=== PATIENT | female | born 1965 | race Caucasian/White ===

== ENCOUNTER → 2023-08-21 11:30 | Outpatient (REF) | payer BC, SELFPAY ==
[2023-08-21 09:31] LABS: % Basophils 1.3 % (0-2); % Immature Granulocytes 0.3 % (0-0.5); % Lymphocytes 18.9 % (20.5-51.1); % Monocytes 15.1 % (1.7-9.3); % Neutrophils 61.4 % (42.2-75.2); Absolute Basophils 0.1 10^3/uL (0-0.2); Absolute Eosinophils 0.1 10^3/uL (0-0.7); Absolute Lymphocytes 0.8 10^3/uL (1.2-3.4); Absolute Monocytes 0.6 10^3/uL (0.1-0.6); Absolute Neutrophils 2.4 10^3/uL (1.4-6.5); Hemoglobin 12.9 g/dL (12.0-16.0); Mean Corp Hgb Conc. 34.9 g/dL (33.0-37.0); Mean Corpuscular Hgb 30.3 pg (27.0-31.0); Mean Corpuscular Volume 86.9 fL (81.0-99.0); Mean Platelet Volume 8.4 fL (7.4-10.4); Nucleated Red Blood Cells % 0 %; Platelet Count 247 10^3/uL (130-400); Red Blood Cell Count 4.26 10^6/uL (4.20-5.40); Red Cell Dist. Width 12.8 % (11.5-14.5)
[2023-08-21 09:47] LABS: ALT (SGPT) 32 U/L (0-35); AST (SGOT) 33 U/L (14-36); Albumin 4.1 g/dl (3.5-5.0); Alkaline Phosphatase 88 U/L (38-126); Blood Urea Nitrogen 23 mg/dl (7-17); Carbon Dioxide 26 mmol/L (22-30); Chloride 96 mmol/L (98-107); Glucose 88 mg/dl (70-99); Potassium 4.4 mmol/L (3.5-5.1); Sodium 134 mmol/L (135-145); Total Bilirubin 0.9 mg/dl (0.2-1.3); Total Protein 6.1 g/dl (6.3-8.2); eGFR 57.52
== END ==
LOC: OIDL 11:30
PROVIDERS: ATTENDING PHYSICIAN Internal Medicine Hematology & Oncology
DX: C83.39 Diffuse large B-cell lymphoma, extranodal and solid organ sites (principal)
CPT/HCPCS: 80053; 85025

== ENCOUNTER → 2023-10-23 11:35 | Outpatient (REF) | payer BC, SELFPAY ==
[2023-10-23 10:59] LABS: ALT (SGPT) 27 U/L (0-35); AST (SGOT) 27 U/L (14-36); Albumin 4.2 g/dl (3.5-5.0); Alkaline Phosphatase 109 U/L (38-126); Blood Urea Nitrogen 17 mg/dl (7-17); Calcium 9.6 mg/dl (8.4-10.2); Carbon Dioxide 25 mmol/L (22-30); Chloride 104 mmol/L (98-107); Glucose 98 mg/dl (70-99); Potassium 4.2 mmol/L (3.5-5.1); Sodium 135 mmol/L (135-145); Total Bilirubin 0.5 mg/dl (0.2-1.3); Total Protein 6.1 g/dl (6.3-8.2); eGFR > 60.00
[2023-10-23 14:04] LABS: % Basophils 1.1 % (0-2); % Eosinophils 2.9 % (0-6); % Immature Granulocytes 0.5 % (0-0.5); % Lymphocytes 16.6 % (20.5-51.1); % Monocytes 14.1 % (1.7-9.3); % Neutrophils 64.8 % (42.2-75.2); Absolute Basophils 0.1 10^3/uL (0-0.2); Absolute Eosinophils 0.1 10^3/uL (0-0.7); Absolute Lymphocytes 0.7 10^3/uL (1.2-3.4); Absolute Monocytes 0.6 10^3/uL (0.1-0.6); Absolute Neutrophils 2.9 10^3/uL (1.4-6.5); Hematocrit 37.4 % (37.0-47.0); Hemoglobin 12.6 g/dL (12.0-16.0); Mean Corp Hgb Conc. 33.7 g/dL (33.0-37.0); Mean Corpuscular Hgb 31.1 pg (27.0-31.0); Mean Corpuscular Volume 92.3 fL (81.0-99.0); Mean Platelet Volume 9.1 fL (7.4-10.4); Nucleated Red Blood Cells % 0 %; Platelet Count 256 10^3/uL (130-400); Red Blood Cell Count 4.05 10^6/uL (4.20-5.40); White Blood Cell Count 4.4 10^3/uL (4.8-10.8)
== END ==
LOC: OIDL 11:35
PROVIDERS: ATTENDING PHYSICIAN Internal Medicine Hematology & Oncology
DX: C83.39 Diffuse large B-cell lymphoma, extranodal and solid organ sites (principal)
CPT/HCPCS: 80053; 85025

== ENCOUNTER → 2023-10-28 06:33 | Day surgery (SDC) | payer BC, SELFPAY | LOC: GI 06:33 | PROVIDERS: ATTENDING PHYSICIAN Internal Medicine Gastroenterology; FAMILY PHYSICIAN Physician Assistant Medical | DX: Z12.11 Encounter for screening for malignant neoplasm of colon (principal); K64.8 Other hemorrhoids; K44.9 Diaphragmatic hernia without obstruction or gangrene; K31.89 Other diseases of stomach and duodenum; R93.3 Abnormal findings on diagnostic imaging of other parts of digestive tract; R12 Heartburn; Z83.719 Family history of colon polyps, unspecified | CPT/HCPCS: 43239; G0105; 88305; 88342 ==

== ENCOUNTER → 2023-10-30 12:17 | Outpatient (REF) | payer BC, SELFPAY ==
[2023-10-30 12:35] VITALS: BP 153/74; BP_SYST 66
[2023-10-30 13:25] VITALS: BP 150/80; BP_SYST 56
[2023-10-30 13:33] VITALS: BP 150/80; BP_SYST 56
[2023-10-30 13:34] VITALS: BP 150/80
== END ==
LOC: RADI 12:17
PROVIDERS: ATTENDING PHYSICIAN Internal Medicine Hematology & Oncology; FAMILY PHYSICIAN Physician Assistant Medical
DX: Z45.2 Encounter for adjustment and management of vascular access device (principal); C83.39 Diffuse large B-cell lymphoma, extranodal and solid organ sites; Z92.21 Personal history of antineoplastic chemotherapy
CPT/HCPCS: 36590; 77001

== ENCOUNTER → 2023-12-28 08:26 | Outpatient (REF) | payer BC, SELFPAY | LOC: RAD 08:26 | PROVIDERS: ATTENDING PHYSICIAN Nurse Practitioner Adult Health; FAMILY PHYSICIAN Physician Assistant Medical | DX: Z78.0 Asymptomatic menopausal state (principal) | CPT/HCPCS: 77080 ==

== ENCOUNTER → 2024-03-09 12:37 | Outpatient (REF) | payer BC, SELFPAY | LOC: RAD 12:37 | PROVIDERS: ATTENDING PHYSICIAN Internal Medicine Hematology & Oncology; FAMILY PHYSICIAN Physician Assistant Medical | DX: C83.39 Diffuse large B-cell lymphoma, extranodal and solid organ sites (principal); L03.90 Cellulitis, unspecified | CPT/HCPCS: 71260; 74177; Q9967 ==

== ENCOUNTER 2024-03-29 21:27 | Inpatient (IN) | payer BC, SELFPAY ==
[2024-03-29 17:44] VITALS: BP 158/93
--- NOTE | 2024-03-29 19:34 | ED.GENMED ---
History of Present Illness
General
Chief Complaint: Skin Problem
Source: patient
Exam Limitations: none
Time Seen by Provider: 03/29/24 19:18
History of Present Illness
History of Present Illness:
This is a 58 year old female that comes in with c/o right arm pain and swelling. States that 2 weeks ago she started to feel that her elbow was sore. State that 2 days ago it was swollen and painful. Patient went to the PCP yesterday and she was
started on Keflex 500mg BID. States that she has taken 4 doses and today the arm is worse. States that it is red, painful and more swollen. State that she has a headache and diarrhea. State that she has to get better as her daughters wedding in this
weekend. Denies any fever, chills, chest pain, SOB, abd pain, nausea, vomiting, dizziness, urinary burning.
Past History
Past History
ED Past Medical History: Cancer (Lymphoma, ), HTN, Hypercholesterolemia, Seizures and Other (Sjogren syndrome, Ulcers, Lupus,)
ED Past Surgical History: Orthopedic (Bunionectomy), Tonsilectomy (and adenoids) and Other (Parathyroidectomy, )
Social History
Tobacco: Non-smoker
Alcohol: None
Personal:
Living: with family
Review of Systems
Review of Systems
All Other Systems: ROS reviewed and negative except as documented in HPI and ROS
Constitutional: Reports no symptoms; Denies fever or chills
EENT: Reports no symptoms
Respiratory: Reports no symptoms; Denies cough or trouble breathing
Cardiac: Reports no symptoms; Denies chest pain
ABD/GI: Reports diarrhea; Denies abdominal pain, nausea or vomiting
: Reports no symptoms; Denies dysuria, frequency or urgency
Musculoskeletal: Reports joint pain (Right elbow pain and swelling)
Skin: Reports no symptoms
Neurological: Reports headache; Denies dizzy
Psychiatric: Reports no symptoms
Phy Exam
General Physical Exam
General Presentation: no apparent distress
General age: appears stated age
General Skin: warm and dry
General Habitus: normal
General Mental: alert
General Hydration: appears well hydrated
ENT Exam
ENT Exam: TM's normal, pharynx normal and neck supple
Eye Exam
Eye Exam: EOMI
Cardiovascular Exam
Cardiovascular Exam: regular rate/rhythm, no edema, no murmur and normal peripheral pulses
Pulmonary Exam
Pulmonary Exam: lungs clear, no respiratory distress, no rales, chest non tender, no crackles, no rhonchi, no wheezing and no cough
Gastrointestinal Exam
Gastrointestinal Exam: normal bowel sounds, non tender, soft, no organomegaly, no pulsatile mass and non distended
Musculoskeletal Exam
Musculoskeletal Exam: full ROM and joint swelling (right elbow, Painful to touch)
Skin Exam
Skin Exam: normal color, warm/dry, no petechia, redness (Of the right elbow with slight redness down into the forearm and upper arm. ) and other (Small white area noted on the center of the elbow with the redness around)
Psychiatric Exam
Psychiatric Exam: normal mood/affect
Course
Orders/Labs/Results
Orders:
Orders
03/29/24 19:27
Elbow, Right 3 View [CR Elbow - Right Min 3 Views] Urgent
Comment:
Reason For Exam: Swellig pain
03/29/24 20:23
Complete Blood Count/With Diff Urgent
Comprehensive Metabolic Panel Urgent
Lactic Acid Urgent
03/29/24 20:36
Vancomycin 1 Gram/200 ml [Vancocin] 1 gram in 200 ml IV NOW
03/29/24 21:13
Admit/Transfer Patient As Directed
Co-Sign Provider:
Level of Care: Inpatient admission
Assign to:: Medical/Surgical
Physician / Group: jacobo ferraro
Diagnosis: right elbow olcreanon bursitis immunocompromised pt
Reason for Hospitalization: right elbow olcreanon bursitis immunocompromised pt
Expected length of stay greater than two midnights?: Yes
ELOS- Estimated Length of Stay in days: 3
I certify the patient meets the requirements for IP care: Yes
Code Status As Directed
Resuscitation Status: Full Code
03/29/24 21:14
PRN Pain Medication Management As Directed
May give lesser potent ordered pain med per pt: Yes
preference::
Protocol:: Medication orders for pain may be administered in a
manner that supports deferring to patient preference
when the pt is:
- Requesting an ordered lesser potent pain medication.
Least to most potent pain medications are defined
as: acetaminophen < NSAID < tramadol < opioids
(morphine, oxycodone, hydromorphone).
- Requesting a lesser dose of the same medication IF
ORDERED.
- Requesting a less intrusive route of administration
if both routes are prescribed by the provider (PO <
IV).
Abnormal Lab Results
03/29/24
20:23
Absolute Lymphs (auto) 1.0 L 10^3/uL
(1.2-3.4)
Absolute Monos (auto) 0.8 H 10^3/uL
(0.1-0.6)
Lymphocytes % 13.7 L %
(20.5-51.1)
Monocytes % 11.5 H %
(1.7-9.3)
Chloride 97 L mmol/L
(98-107)
BUN 22 H mg/dl
(7-17)
Calcium 10.3 H mg/dl
(8.4-10.2)
ALT 36 H U/L
(0-35)
Alkaline Phosphatase 139 H U/L
(38-126)
03/29/24 20:23
03/29/24 20:23
Chloride slightly low. Dehydration. alk phos slightly elevated.
Vital Signs
Initial and Last Documented VS:
Initial Vital Signs
Temp Pulse Resp BP Pulse Ox
98.4 F 72 18 158/93 96
03/29/24 17:44 03/29/24 17:44 03/29/24 17:44 03/29/24 17:44 03/29/24 17:44
Last Documented Vital Signs
Temp Pulse Resp BP Pulse Ox
98.2 F 83 18 157/86 97
03/29/24 21:13 03/29/24 21:13 03/29/24 21:13 03/29/24 21:13 03/29/24 21:13
MDM/Problems Addressed
Differential Diagnosis Includes:
Cellulitis, Vs bursitis
MDM/Problems Addressed:
This is a 58 year old female that comes in with c/o right elbow swelling and redness. states that this started 2 weeks ago but in the pst 2 days it got worse. Patient was seen by the PCP yesterday and she has taken Keflex 500mg 4 doses. States that
the arm has gotten worse and that she has had daughters wedding this weekend and she is Immunocompromised.
will get labs, X-ray and explained to patient that she will most likely be admitted for IV antibiotics.
Chronic conditions affecting care:
Immunocompromised
Acute Exacerbation and/or Progression of Chronic Illness:
NA
*Radiology
Radiology exam reviewed: radiology read reviewed (elbow. No acute fracture or dislocation. Severe posterior elbow soft tissue swelling may reflect olecranon bursitis. joint spaces are maintained. No radiographic evidence for osteomyelitis.
questionable joint effusion. Scattered soft tissue phleboliths. )
*Pulse Oximetry
Patient hypoxic: no
*EKG
Interpreted by ED Provider?: NA
Rate: EKG- N/A
*Standard Machine Stitcher Interpretation
Rate: Standard Machine Stitcher- N/A
*Critical Care Note
Total Time (30-74mins, 75-104mins- exclusive of procedures): Not Applicable
ED Attending Note
-
Portions of this chart may have been created with voice recognition software.� Occasional wrong word or��sound alike� substitutions may have occurred due to the inherent limitations of voice recognition software.
Discharge Plan
Departure
Patient Disposition: Admit
Date of Disposition: 03/29/24
Time of Disposition: 20:39
Admit to: Med/Surg
Presentation/result/management discussed w/ accepting MD/DO: Hospitalist
Patient with high blood pressure during this ER visit?: Yes
Condition: Good
Covid-19: Not Applicable
Discharge Problem:
Elbow pain, right, bursitis vs Cellulitis
Interventions
Interventions:
*Risk Screen - Suicide Last Done: 03/29/24 21:17
*General Assessment Last Done: 03/29/24 21:17
*Neglect/Abuse Screening Last Done: 03/29/24 21:17
ED- Fall Risk Assessment Last Done: 03/29/24 20:49
ED-Skin Assessment Last Done: 03/29/24 20:49
[2024-03-29 20:29] LABS: % Basophils 0.8 % (0-2); % Eosinophils 1.4 % (0-6); % Immature Granulocytes 0.3 % (0-0.5); % Lymphocytes 13.7 % (20.5-51.1); % Monocytes 11.5 % (1.7-9.3); % Neutrophils 72.3 % (42.2-75.2); Absolute Basophils 0.1 10^3/uL (0-0.2); Absolute Eosinophils 0.1 10^3/uL (0-0.7); Absolute Monocytes 0.8 10^3/uL (0.1-0.6); Absolute Neutrophils 5.2 10^3/uL (1.4-6.5); Hematocrit 40.3 % (37.0-47.0); Hemoglobin 14.1 g/dL (12.0-16.0); Mean Corpuscular Hgb 30.6 pg (27.0-31.0); Mean Corpuscular Volume 87.4 fL (81.0-99.0); Mean Platelet Volume 8.5 fL (7.4-10.4); Nucleated Red Blood Cells % 0 %; Platelet Count 260 10^3/uL (130-400); Red Blood Cell Count 4.61 10^6/uL (4.20-5.40); Red Cell Dist. Width 13.1 % (11.5-14.5); White Blood Cell Count 7.2 10^3/uL (4.8-10.8)
[2024-03-29 20:41] LABS: Lactic Acid 1.1 mmol/L (0.7-2.0)
[2024-03-29 20:46] LABS: ALT (SGPT) 36 U/L (0-35); AST (SGOT) 33 U/L (14-36); Alkaline Phosphatase 139 U/L (38-126); Blood Urea Nitrogen 22 mg/dl (7-17); Calcium 10.3 mg/dl (8.4-10.2); Carbon Dioxide 25 mmol/L (22-30); Chloride 97 mmol/L (98-107); Glucose 95 mg/dl (70-99); Potassium 4.3 mmol/L (3.5-5.1); Sodium 137 mmol/L (135-145); Total Bilirubin 0.6 mg/dl (0.2-1.3); Total Protein 7.1 g/dl (6.3-8.2); eGFR > 60.00
--- NOTE | 2024-03-29 20:51 | HPS.HSE ---
Family Physician
-
Family Physician: Alysha Webster
Chief Complaint
-
Right elbow swelling/effusion
History of Present Illness
58-year-old female who reports approximate 2 weeks ago she had an aching pain on her right elbow. She then noticed approximate 3 days ago pain with swelling and erythema. She saw her PCP yesterday and was started on Keflex of which she is taking 4
tablets. She felt the pain and erythema got worse and decided to come to the hospital today. She is on Rituxan for lymphoma with most recent dose in January. She denies current fever, chills, chest pain, palpitations, shortness breath, cough,
abdominal pain, nausea, vomiting, diarrhea, urinary symptoms.
She has past medical history seizures, HTN, HLD, sleep apnea, Sjogren's syndrome, lupus, marginal/follicular lung lymphoma, hypothyroidism status post parathyroidectomy, left/right parotidectomy 2/2 recurrent cellulitis face
Medical History
Past Medical History
Past Medical History: Reports Other
Additional Past Medical History:
seizures,
HTN
HLD
sleep apnea
Sjogren's syndrome
lupus
marginal/follicular lung lymphoma,
hypothyroidism status post parathyroidectomy
left/right parotidectomy 2/2 recurrent facial cellulitis
Past Surgical History: Reports Other
Additional Past Surgical History:
Tonsillectomy/adenoidectomy
Bunionectomy
left/right parotidectomy 2/2 recurrent facial cellulitis
Parathyroidectomy
Social History
Tobacco: Non-smoker
Alcohol: Occasional
Drug: None
Personal: Single
Living: Alone
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
Family History
Family History: Other (Father living history end-stage renal disease prostate cancer, A-fib, mother CHF, 1 brother DM 2, HTN, HLD 1 sister healthy)
Allergies / Home Medications
Allergies reflects when Allergies were last updated in [employer].
Home Medications with original date entered in [employer]
Allergy/Medication List:
Allergies
Allergy/AdvReac Type Severity Reaction Status Date / Time
levofloxacin [From Levaquin] Allergy Rash Verified 10/30/23 13:34
Sulfa (Sulfonamide Allergy Rash Verified 10/30/23 13:34
Antibiotics)
sulfamethoxazole Allergy Rash Verified 10/30/23 13:34
[From Bactrim]
trimethoprim [From Bactrim] Allergy Rash Verified 10/30/23 13:34
Home Medications
aspirin 81 mg capsule 81 mg PO HS 08/29/22
atorvastatin 80 mg tablet 80 mg PO HS 08/29/22
cyclosporine 0.05 % eye drops in a dropperette (Restasis) 1 drp BOTH EYES BID 08/29/22
ezetimibe 10 mg tablet (Zetia) 10 mg PO HS 08/29/22
hydroxychloroquine 200 mg tablet (Plaquenil) 200 mg PO BID 08/29/22
lamotrigine 200 mg tablet (Lamictal) 200 mg PO DAILY 08/29/22
levothyroxine 50 mcg tablet 50 mcg PO DAILY 08/29/22
montelukast 10 mg tablet 10 mg PO DAILY 08/29/22
valsartan 320 mg-hydrochlorothiazide 12.5 mg tablet (Diovan HCT) 1 tab PO HS 08/29/22
albuterol sulfate 90 mcg/actuation aerosol inhaler 2 puff inhalation R Q6HPRN PRN sob 09/23/22
alprazolam 0.5 mg tablet 0.5 mg PO HSPRN PRN insomnia 09/23/22
cholecalciferol (vitamin D3) 50 mcg (2,000 unit) capsule (Vitamin D3) 50 mcg PO DAILY 09/23/22
cephalexin 500 mg capsule 500 mg PO BID 03/29/24
clotrimazole-betamethasone 1 %-0.05 % topical cream 1 applic topical BID under breasts 03/29/24
ferrous sulfate 325 mg (65 mg iron) tablet 325 mg PO HS 03/29/24
fluticasone furoate 100 mcg/actuation blister powder for inhalation (Arnuity Ellipta) 1 inh inhalation R DAILY 03/29/24
guaifenesin 1,200 mg tablet, extended release 12 hr 1,200 mg PO DAILY 03/29/24
ibuprofen 200 mg tablet (Advil) 400 mg PO Q6HPRN PRN mild pain 03/29/24
lamotrigine 200 mg tablet (Lamictal) 100 mg PO HS 03/29/24
ranolazine 500 mg tablet,extended release,12 hr 500 mg PO BID 03/29/24
Review of Systems
-
History Source: Patient
A 12 point ROS was completed and negative except as noted: Yes
Constitutional: Denies Fever or Chills
EENT: Denies Sore Throat or Runny Nose
Respiratory: Denies Cough or Trouble Breathing
Cardiac: Denies Chest Pain, Palpitations or Syncope
Abdomen/GI: Denies Abdominal Pain, Nausea, Vomiting, Diarrhea, Constipated, Bloody Stools or Black Stools
: Denies Dysuria, Frequency, Flank Pain, Incontinence, Difficulty Voiding or Urgency
Musculoskeletal: Reports Joint Pain (Right elbow with joint effusion surrounding erythema extending to mid forearm and proximal humerus)
Skin: Denies Itching or Rash
Neurological: Denies Dizzy, Headache or Weakness
Endocrine: Reports No Symptoms
Hematologic/Lymphatic: Reports No Symptoms
Psych: Reports Calm
Physical Exam
Vital Signs
Vital Signs
Temp Pulse Resp BP Pulse Ox
98.4 F 72 18 158/93 96
03/29/24 17:44 03/29/24 17:44 03/29/24 17:44 03/29/24 17:44 03/29/24 17:44
Physical Exam
General: Comfortable, Conversant and Pain; No Fever or Chills
HEENT: NormoCephalic, Anicteric, Moist mucous membranes, PERRLA, [place] Conjunctivae and No Ptosis
Respiratory: Clear; No Wheezes, Rales or Rhonchi
Cardiac: S1/S2 and Regular Rhythm; No Murmur, Rub, Gallop or Peripheral Edema
Breast: Deferred by me
GI: Soft, Non Tender, Non Distended, Normal Bowel Sounds and No Hepatosplenomegaly
Rectal: Deferred by Provider
Musculoskeletal: No Clubbing, No Cyanosis and Edema, Right Upper Extremity (Right elbow with joint effusion surrounding erythema extending to mid forearm and proximal humeru); No Edema, Left Upper Extremity, Edema, Left Lower Extremity or Edema,
Right Lower Extremity
Skin: Warm and Dry; No Rash
Neuro: AO x 3, No Motor Deficits, Nonfocal/grossly intact, Cranial Nerves Intact and No Sensory Deficits; No Slurred Speech, Facial Droop or Tremors
Psych: Calm
Laboratory Results
-
03/29/24 20:23
03/29/24 20:23
Laboratory Results
Lactic Acid 1.1 mmol/L (0.7-2.0) 03/29/24 20:23
Total Bilirubin 0.6 mg/dl (0.2-1.3) 03/29/24 20:23
AST 33 U/L (14-36) 03/29/24 20:23
ALT 36 U/L (0-35) H 03/29/24 20:23
Alkaline Phosphatase 139 U/L (38-126) H 03/29/24 20:23
Data Reviewed
-
Diagnostic Radiology: Report Reviewed by me
Lab Data: Labs Reviewed by me
Impression/Plan
-
Impression/plan:
Admit to MedSurg
#Right elbow olcrenaon bursitis immunocompromised on Rituxan
completed keflex 4 tablets only
- consult ortho for aspiration right elbow
- Iv Vanco
-follow cbc , bmp
Right elbow x-ray: No acute fracture or dislocation. Severe posterior elbow soft tissue swelling may reflect olcranon bursitis. No osteomyelitis
#Lymphoma marginal/follicular lung�current remission
Takes Rituxan last dose was January follows with [facility]
#Seizure disorder
-Continue Lamictal 200 mg a.m., 100 mg at bedtime
#Atherosclerosis
-No history of cardiac cath follows with [facility] cardiology
-Continue Ranexa, statin, aspirin 81 mg daily
#Hypothyroidism s/p parathyroidectomy
-Continue levothyroxine 50 mcg p.o. daily
#Lupus
-Continue Plaquenil 200 mg twice daily
#HTN�benign
BP 158/93
-Continue valsartan/HCTZ
#HLD
-Continue Zetia 10 mg at bedtime, atorvastatin 80 mg at bedtime
#Insomnia
Continue alprazolam 0.5 mg at bedtime as needed
#Sjogren's syndrome
-Continue Restasis
DVT prophylaxis
Subcu Lovenox
Full code
[2024-03-29 21:09] VITALS: BMI 29.4
[2024-03-29] MEDS: VANCOCIN 200 IV ×2 (21:09→23:17)
[2024-03-29 21:13] VITALS: BP 157/86
--- NOTE | 2024-03-29 21:23 | W.PN.UPDATE ---
Update Note
Progress Note Update
This is an addendum to the H&P written by Beverley Uribe on 03/29/2024. Patient seen examined independently with [facility] [employer].
58-year-old female here with right elbow olecranon bursitis. Elbow x-ray shows severe posterior elbow soft tissue swelling. Questionable joint effusion. Vancomycin. Ortho consulted.
[2024-03-29 22:05] VITALS: BP 145/84; BMI 28.9
[2024-03-29] MEDS: ROXICODONE 5 MG PO (23:13)
--- NOTE | 2024-03-30 01:28 | PTCARENOTE ---
patient admitted to 2129, OX3. pt inst on poc and call goyal. Call goyal within reach. pt verb understanding. all questions addressed.
[2024-03-30] MEDS: ROXICODONE 5 MG PO ×2 (03:05→12:00)
[2024-03-30 05:55] LABS: Hematocrit 38.1 % (37.0-47.0); Hemoglobin 13.5 g/dL (12.0-16.0); Mean Corp Hgb Conc. 35.4 g/dL (33.0-37.0); Mean Corpuscular Hgb 31.8 pg (27.0-31.0); Mean Corpuscular Volume 89.6 fL (81.0-99.0); Mean Platelet Volume 8.5 fL (7.4-10.4); Platelet Count 247 10^3/uL (130-400); Red Blood Cell Count 4.25 10^6/uL (4.20-5.40); Red Cell Dist. Width 12.9 % (11.5-14.5); White Blood Cell Count 5.3 10^3/uL (4.8-10.8)
[2024-03-30 06:16] LABS: ALT (SGPT) 30 U/L (0-35); AST (SGOT) 30 U/L (14-36); Albumin 4.2 g/dl (3.5-5.0); Alkaline Phosphatase 98 U/L (38-126); Blood Urea Nitrogen 18 mg/dl (7-17); Carbon Dioxide 27 mmol/L (22-30); Chloride 99 mmol/L (98-107); Estimated Creatinine Clearance 73 ml/min; Glucose 101 mg/dl (70-99); Potassium 3.8 mmol/L (3.5-5.1); Sodium 137 mmol/L (135-145); Total Bilirubin 0.5 mg/dl (0.2-1.3); Total Protein 6.1 g/dl (6.3-8.2); eGFR > 60.00
[2024-03-30 06:21] LABS: Absolute Neutrophils -Man Diff 3.1 10^3/uL (1.4-6.5); Band Neutrophils 0 % (0-3); Eosinophils 9 % (0-6); Lymphocytes 17 % (20-51); Monocytes 13 % (2-9); Platelets Checked Yes; Segmented Neutrophils 60 % (42-75)
[2024-03-30 06:22] LABS: Myelocytes 1 % (-); Normal RBC Morphology Yes; Total Cells Counted 100
[2024-03-30 08:13] VITALS: BP 121/70
--- NOTE | 2024-03-30 08:55 | PTOTSP ---
Patient admitted for elbow bursitis - spoke with the patient, who was ambulating independently in the room and denied any issues with mobility. Patient agreeable to PT signing off and is aware our services are available if needed.
--- NOTE | 2024-03-30 09:20 | PHA.VAN.IN ---
Assessment
- Assessment
Renal Function: Appears similar to baseline
Maximum Temperature: 99.3
Minimum Temperature: 98.1
AUC Dosing Plan
- Empiric Dosing
Initial / Loading Dose: vanc 1 g (03/29 21:09) + vanc 1 g (03/29 23:17) - 24 mg/kg total
Maintenance Regimen: vanc 1000mg q12h
Estimated AUC (mcg*h/mL): 544
Estimated Peak (mcg*h/mL): 31.6
Estimated Trough (mcg/ml): 15.5
Estimated Half Life (H): 10.7
- Monitoring
No levels ordered at this time: consider in the upcoming days
Pharmacokinetics Vancomycin I
- -
Patient Age: 59
Patient Sex: Female
Vancomycin Day #: 1
Indication: Skin And Soft Tissue (elbow olecranon bursitis with tissue swelling)
Requesting Provider: MIKE Gould
Pertinent Antimicrobial Allergies:
levofloxacin [From Levaquin] Allergy (Verified 10/30/23 13:34) - Rash
sulfamethoxazole [From Bactrim] Allergy (Verified 10/30/23 13:34) - Rash
trimethoprim [From Bactrim] Allergy (Verified 10/30/23 13:34) - Rash
Height / Weight:
Height 5 ft 7 in
Actual Weight 83.506 kg
Pertinent Past Medical History: cephalexin GLASS SMOOTHER
- Vital Signs / Lab Results
Temp Pulse Resp BP Pulse Ox
99.3 F 72 16 121/70 98
03/30/24 08:13 03/30/24 08:13 03/30/24 08:13 03/30/24 08:13 03/30/24 09:00
Lab Results - Hematology
03/29/24 03/30/24
20:23 05:29
WBC 7.2 5.3
Band Neutrophils 0
Lab Results - Chemistry
03/29/24 03/30/24
20:23 05:29
BUN 22 H 18 H
Creatinine 0.9 0.9
Estimated Creat Clear 73
Albumin 5.0 4.2
03/29/24
20:23
Lactic Acid 1.1
[2024-03-30] MEDS: VITAMIN D3 (cholecalciferol) 50 MCG PO (10:08)
[2024-03-30] MEDS: SYNTHROID 50 MCG PO (10:08)
[2024-03-30] MEDS: SINGULAIR 10 MG PO (10:08)
[2024-03-30] MEDS: PLAQUENIL 200 MG PO ×2 (10:08→20:06)
[2024-03-30] MEDS: RANEXA EXTENDED RELEASE 500 MG PO ×2 (10:10→20:06)
[2024-03-30] MEDS: LAMICTAL 200 MG PO (10:10)
--- NOTE | 2024-03-30 11:39 | CM ---
Patient seen at bedside with Bautista. IA completed
Dx: R elbow olcreanon bursitis
States await ortho. to see her.
Lives in a 2 story home with , 0 steps to enter, 12 steps to second floor.
PLOF: Independent, drives
No DME
Denies any food/utilities/housing/transportation insecurities.
States her daughter getting on Thursday.
no needs identified at this time.
PCP: Alysha Webster
Pharmacy: [facility]
PLAN: Discharge when stable to home. Currently no anticipated needs.
[2024-03-30] MEDS: RESTASIS 0.05% OPHTHALMIC EMULSION 1 DROPS OPHTH (12:01)
[2024-03-30] MEDS: PROTONIX 40 MG PO (12:01)
[2024-03-30] MEDS: ZOFRAN 4 MG IV (12:56)
--- NOTE | 2024-03-30 14:00 | PTCARENOTE ---
Patient with R elbow +1 edema, warmth and erythema; per patient, improved over last 24 hrs. Patient with mild pain to R elbow rated 5/10 relieved with PRN Roxicodone - see MAR. Ice pack given to patient by tech per MD order for intermittent cold
compress. Patient confirmed home med list with this RN, scheduled medications ordered per MD.
--- NOTE | 2024-03-30 14:13 | W.PN.HOSP.TC ---
Today's Communication/Plan
-
.
Assessment / Plan
Assessment / Plan
NAD, resting comfortably in bed
Scleral anicteric
Moist mucous membranes
No JVD
CTA bilateral
Normal S1-S2 no murmurs
Soft nontender nondistended bowel sounds active
No peripheral pitting edema
Moves extremities spontaneously
Right elbow bursa inflamed. No effusion of the elbow joint. Able to move joint well without pain. There is some warmth however to what she has described as this was keeping her warm yesterday has improved significantly.
AAOx3
Septic bursitis versus olecranon bursitis. Received 1 dose of IV vancomycin. Culture data obtained. Orthopedics consulted for arthrocentesis. Sent for fluid analysis with culture and cytology.
Once able to get arthrocentesis with start cefazolin thereby not disturbing yield of fluid analysis
Lymphoma marginal/follicular lung�current remission
-Takes Rituxan last dose was January follows with [facility]
Seizure disorder
-Continue Lamictal 200 mg a.m., 100 mg at bedtime
Atherosclerosis
-No history of cardiac cath follows with [facility] cardiology
-Continue Ranexa, statin, aspirin 81 mg daily
Hypothyroidism s/p parathyroidectomy
-Continue levothyroxine 50 mcg p.o. daily
Lupus
-Continue Plaquenil 200 mg twice daily
HTN�benign
BP 158/93
-Continue valsartan/HCTZ
HLD
-Continue Zetia 10 mg at bedtime, atorvastatin 80 mg at bedtime
Insomnia
Continue alprazolam 0.5 mg at bedtime as needed
Sjogren's syndrome
-Continue Restasis
DVT prophylaxis
Subcu Lovenox
Anticipated Discharge: 24 - 48 hours
Subjective/Interval History
-
Date of Service: March 30, 2024
Seen and examined no new complaints no acute overnight events.
States that the warmness around the right elbow has improved. Pain has improved. No drainage noted from right elbow.
States that she is anxious as she her daughter is getting this weekend. Would like to get out of the hospital by that time.
Objective Data
-
Labs:
Laboratory Results
03/30/24
05:29
WBC 5.3
Hgb 13.5
Hct 38.1
Plt Count 247
Sodium 137
Potassium 3.8
Chloride 99
Carbon Dioxide 27
BUN 18 H
Creatinine 0.9
Glucose 101 H
Calcium 10.0
Total Bilirubin 0.5
AST 30
ALT 30
Alkaline Phosphatase 98
Vital Signs:
Vital Signs
Temp Pulse Resp BP Pulse Ox
99.3 F 72 16 121/70 98
03/30/24 08:13 03/30/24 08:13 03/30/24 08:13 03/30/24 08:13 03/30/24 09:00
I&O
03/29/24 03/30/24 03/31/24
06:59 06:59 06:59
Intake Total 200 / 200
Balance 200 / 200
[2024-03-30 15:51] VITALS: BP 134/79
--- NOTE | 2024-03-30 18:14 | CON.ORTHO ---
Consultation - Orthopedics
History
HPI: 59-year-old female history of lymphoma in remission, Sjogren's and lupus presented to the emergency department complaints of right elbow pain swelling and redness. She was subsequently admitted to the hospital service for IV antibiotics.
Orthopedics was consulted for consideration of aspiration of olecranon bursa. Patient reports that several days ago she began to develop some redness and swelling in her right arm. She started oral antibiotics. She subsequently developed
additional fluctuance and swelling over the tip of her olecranon that prompted her evaluation emergency department. She reports that she is prone to cellulitis and has had multiple episodes in the past.
Allergies / Home Medications
Past medical history: Lymphoma, Sjogren's, lupus, hypertension, seizures
Past surgical history: Bunionectomy, tonsillectomy, parathyroidectomy
Family history: Not pertinent
Social history: Non-smoker,
Allergy/AdvReac Type Severity Reaction Status Date / Time
levofloxacin [From Levaquin] Allergy Rash Verified 10/30/23 13:34
Sulfa (Sulfonamide Allergy Rash Verified 10/30/23 13:34
Antibiotics)
sulfamethoxazole Allergy Rash Verified 10/30/23 13:34
[From Bactrim]
trimethoprim [From Bactrim] Allergy Rash Verified 10/30/23 13:34
�Medication �Instructions �Recorded
aspirin 81 mg capsule 81 mg PO HS 08/29/22
atorvastatin 80 mg tablet 80 mg PO HS 08/29/22
cyclosporine 0.05 % eye drops in a 1 drp BOTH EYES BID 08/29/22
dropperette (Restasis)
ezetimibe 10 mg tablet (Zetia) 10 mg PO HS 08/29/22
hydroxychloroquine 200 mg tablet 200 mg PO BID 08/29/22
(Plaquenil)
lamotrigine 200 mg tablet 200 mg PO DAILY 08/29/22
(Lamictal)
levothyroxine 50 mcg tablet 50 mcg PO DAILY 08/29/22
montelukast 10 mg tablet 10 mg PO DAILY 08/29/22
valsartan 320 1 tab PO HS 08/29/22
mg-hydrochlorothiazide 12.5 mg
tablet (Diovan HCT)
albuterol sulfate 90 mcg/actuation 2 puff inhalation R Q6HPRN PRN sob 09/23/22
aerosol inhaler
alprazolam 0.5 mg tablet 0.5 mg PO HSPRN PRN insomnia 09/23/22
cholecalciferol (vitamin D3) 50 50 mcg PO DAILY 09/23/22
mcg (2,000 unit) capsule (Vitamin
D3)
cephalexin 500 mg capsule 500 mg PO BID 03/29/24
clotrimazole-betamethasone 1 1 applic topical BID under breasts 03/29/24
%-0.05 % topical cream
ferrous sulfate 325 mg (65 mg 325 mg PO HS 03/29/24
iron) tablet
fluticasone furoate 100 1 inh inhalation R DAILY 03/29/24
mcg/actuation blister powder for
inhalation (Arnuity Ellipta)
guaifenesin 1,200 mg tablet, 1,200 mg PO DAILY 03/29/24
extended release 12 hr
ibuprofen 200 mg tablet (Advil) 400 mg PO Q6HPRN PRN mild pain 03/29/24
lamotrigine 200 mg tablet 100 mg PO HS 03/29/24
(Lamictal)
ranolazine 500 mg tablet,extended 500 mg PO BID 03/29/24
release,12 hr
esomeprazole magnesium 40 mg 40 mg PO DAILY 03/30/24
capsule,delayed release
Vital Signs / Lab Results
Temp Pulse Resp BP Pulse Ox
98.4 F 70 14 134/79 97
03/30/24 15:51 03/30/24 15:51 03/30/24 15:51 03/30/24 15:51 03/30/24 15:51
03/30/24 05:29
03/30/24 05:29
10 point review systems reviewed and negative unless otherwise stated
General: Pleasant, no acute distress
Musculoskeletal right upper extremity
Skin intact, there is some faint erythema noted over the proximal forearm and distal arm
There is swelling noted at the tip olecranon
There is palpable fluctuance over tip olecranon
There is really no pain whatsoever with palpation of fluctuance
Patient has full unrestricted range of motion with symmetric flexion extension pronation supination compared to contralateral extremity
No gross motor or sensory deficits noted
Diagnostic studies
X-rays right elbow reviewed by myself. No fracture dislocations. No significant degenerative joint disease. Soft tissue swelling noted posterior elbow. Negative posterior fat pad sign
Assessment / Plan
59-year-old female history of lymphoma in remission with ongoing treatment, lupus and Sjogren's with right elbow/forearm cellulitis and underlying olecranon bursitis. Very low index of suspicion based on examination today of clinical septic
olecranon bursitis. There is some faint overlying erythema. She reports that this has significantly improved after 2 doses of IV vancomycin. We did discuss both aspiration of her olecranon bursa as well as taking a watch and wait approach. We
did discuss the risks of potentially introducing infection into an otherwise a septic olecranon bursa. After discussion patient elected to hold off on any further invasive intervention including aspiration. She does feel improvement with IV
antibiotics. I would recommend continue IV antibiotics with hopefully transition to oral antibiotics. Certainly if examination should worsen or symptoms should worsen, could consider aspiration or potentially surgical irrigation debridement.
Certainly more than happy to see patient on outpatient basis upon discharge to make sure that she continues to improve clinically. Please reach out with any questions or concerns. This was all explained in detail the patient and she did voiced
understanding to this plan.
[2024-03-30] MEDS: VANCOCIN 200 IV (18:26)
[2024-03-30] MEDS: ANCEF 10 IV (20:06)
[2024-03-30] MEDS: RESTASIS 0.05% OPHTHALMIC EMULSION 1 DROPS BOTH EYES (20:06)
[2024-03-30] MEDS: LOTRISONE CREAM 1 APPLIC TOPICAL (20:07)
[2024-03-30] MEDS: DIOVAN 320 MG PO (21:31)
[2024-03-30] MEDS: LIPITOR 80 MG PO (21:32)
[2024-03-30] MEDS: LAMICTAL 100 MG PO (21:32)
[2024-03-30] MEDS: LOW STRENGTH ASPIRIN 81 MG PO (21:32)
[2024-03-30] MEDS: FEOSOL 325 MG PO (21:32)
[2024-03-30] MEDS: ZETIA 10 MG PO (21:32)
[2024-03-30 23:00] VITALS: BP 137/73
[2024-03-31] MEDS: SYNTHROID 50 MCG PO (05:06)
[2024-03-31] MEDS: VANCOCIN 200 IV ×2 (05:06→17:10)
[2024-03-31 06:30] LABS: Hemoglobin 13.4 g/dL (12.0-16.0); Mean Corp Hgb Conc. 34.4 g/dL (33.0-37.0); Mean Corpuscular Hgb 30.1 pg (27.0-31.0); Mean Corpuscular Volume 87.6 fL (81.0-99.0); Mean Platelet Volume 8.3 fL (7.4-10.4); Platelet Count 252 10^3/uL (130-400); Red Blood Cell Count 4.45 10^6/uL (4.20-5.40); White Blood Cell Count 4.9 10^3/uL (4.8-10.8)
[2024-03-31 06:52] LABS: ALT (SGPT) 26 U/L (0-35); AST (SGOT) 26 U/L (14-36); Alkaline Phosphatase 111 U/L (38-126); Blood Urea Nitrogen 16 mg/dl (7-17); Calcium 9.8 mg/dl (8.4-10.2); Carbon Dioxide 26 mmol/L (22-30); Chloride 101 mmol/L (98-107); Estimated Creatinine Clearance 73 ml/min; Glucose 104 mg/dl (70-99); Potassium 4.5 mmol/L (3.5-5.1); Sodium 138 mmol/L (135-145); Total Bilirubin 0.5 mg/dl (0.2-1.3); Total Protein 5.9 g/dl (6.3-8.2); eGFR > 60.00
[2024-03-31 07:22] LABS: % Basophils 0.8 % (0-2); % Eosinophils 2.7 % (0-6); % Immature Granulocytes 0.4 % (0-0.5); % Lymphocytes 16.9 % (20.5-51.1); % Monocytes 14.4 % (1.7-9.3); % Neutrophils 64.8 % (42.2-75.2); Absolute Eosinophils 0.1 10^3/uL (0-0.7); Absolute Lymphocytes 0.8 10^3/uL (1.2-3.4); Absolute Monocytes 0.7 10^3/uL (0.1-0.6); Absolute Neutrophils 3.2 10^3/uL (1.4-6.5); Nucleated Red Blood Cells % 0 %
[2024-03-31 07:40] VITALS: BP 126/85
--- NOTE | 2024-03-31 08:12 | PHA.VAN.FU ---
Vancomycin Assessment / Plan
- Assessment
Renal Function: Stable
WBC's are: WNL
In the past 24 hrs, patient has been: Afebrile
- Dosing Plan
Continue: Vanc 1000mg Q12H
- Monitoring Plan
No level(s) ordered at this time: consider levels in next few days
- Follow Up
Pharmacy will continue to follow.
Vancomycin Follow UP
- -
Patient Age: 59
Patient Sex: Female
Vancomycin Day #: 2
Indication: Skin And Soft Tissue
Requesting Provider: MIKE Gould
Pertinent Antimicrobial Allergies:
levofloxacin [From Levaquin] - Rash
sulfamethoxazole / trimethoprim [From Bactrim] - Rash
Height / Weight:
Height 5 ft 7 in
Actual Weight 83.506 kg
Pertinent Past Medical History: Lymphoma (remission; rituximab in January)
- Vital Signs / Lab Results
Temp Pulse Resp BP Pulse Ox
98.7 F 76 14 126/85 98
03/31/24 07:40 03/31/24 07:40 03/31/24 07:40 03/31/24 07:40 03/31/24 07:40
Lab Results - Hematology
03/29/24 03/30/24 03/31/24
20:23 05:29 05:27
WBC 7.2 5.3 4.9
Band Neutrophils 0
Lab Results - Chemistry
03/29/24 03/30/24 03/31/24
20:23 05:29 05:27
BUN 22 H 18 H 16
Creatinine 0.9 0.9 0.9
Estimated Creat Clear 73 73
Albumin 5.0 4.2 4.0
03/29/24
20:23
Lactic Acid 1.1
[2024-03-31] MEDS: VITAMIN D3 (cholecalciferol) 50 MCG PO (08:37)
[2024-03-31] MEDS: RANEXA EXTENDED RELEASE 500 MG PO (08:37)
[2024-03-31] MEDS: PROTONIX 40 MG PO (08:38)
[2024-03-31] MEDS: LAMICTAL 200 MG PO (08:38)
[2024-03-31] MEDS: RESTASIS 0.05% OPHTHALMIC EMULSION 1 DROPS BOTH EYES (08:39)
[2024-03-31] MEDS: LOTRISONE CREAM 1 APPLIC TOPICAL (08:43)
[2024-03-31] MEDS: PLAQUENIL 200 MG PO (09:00)
[2024-03-31] MEDS: SINGULAIR 10 MG PO (09:00)
[2024-03-31 11:18] VITALS: BP 130/72
--- NOTE | 2024-03-31 11:21 | W.DCSUMMARY ---
Discharge Summary
Discharge Data
Date of Admission: 03/29/24
Date of Discharge: 03/31/24
-
Pending Results: No
Hospital Course
59F past medical history seizures, HTN, HLD, sleep apnea, Sjogren's syndrome, lupus, marginal/follicular lung lymphoma, hypothyroidism status post parathyroidectomy, left/right parotidectomy 2/2 recurrent cellulitis face presented with 3-day history
of right elbow pain with noted erythema swelling. 1 day prior to admission was seen by PCP started on Keflex 500 mg twice a day. Followed up in the hospital as there was worsening of erythema swelling and pain. Elbow x-ray demonstrating soft
tissue swelling may reflect olecranon bursitis. Promptly started on vancomycin. Within 24 hours improvement. Evaluated by orthopedics did not believe arthrocentesis was required. Recommend transitioning to oral antibiotics. Started again on
Keflex 500 mg however will need to take it every 6 hours. I have recommended that if she notes worsening swelling pain erythema then she will need to return and at that time which would likely require arthrocentesis to see what the bacteria is. I
informed her possible complications as well such as joint space involvement causing septic arthritis that can translocate to blood eventually leading to septic shock. Verbalized understanding and stated that she would stay however has to get to a
wedding this weekend.
Elbow Xray
IMPRESSION:
No acute fracture or dislocation. Severe posterior elbow soft tissue swelling may reflect olecranon bursitis. Joint spaces are maintained. No radiographic evidence for osteomyelitis. Questionable joint effusion. Scattered soft tissue phleboliths.
Discharge Plan
-
Patient Disposition: Home (Routine Discharge)
Discharge Diagnosis/Procedures: Olecranon bursitis
past medical history seizures, HTN, HLD, sleep apnea, Sjogren's syndrome, lupus, marginal/follicular lung lymphoma, hypothyroidism status post parathyroidectomy, left/right parotidectomy 2/2 recurrent cellulitis face
Diet: As tolerated
Activity: As tolerated
Driving Restrictions: As prior to admission
Referrals:
Alysha Webster PA [Family Provider] -
Giovany Saha MD [Active] - in one to two weeks
Additional Discharge Medication Instructions: Presented with 3-day history of right elbow pain with noted erythema swelling. 1 day prior to admission was seen by PCP started on Keflex 500 mg twice a day. Followed up in the hospital as there was
worsening of erythema swelling and pain. Elbow x-ray demonstrating soft tissue swelling may reflect olecranon bursitis. Promptly started on vancomycin. Within 24 hours improvement. Evaluated by orthopedics did not believe arthrocentesis was
required. Recommend transitioning to oral antibiotics. Started again on Keflex 500 mg however will need to take it every 6 hours. I have recommended that if she notes worsening swelling pain erythema then she will need to return and at that time
which would likely require arthrocentesis to see what the bacteria is. I informed her possible complications as well such as joint space involvement causing septic arthritis that can translocate to blood eventually leading to septic shock.
Verbalized understanding and stated that she would stay however has to get to a wedding this weekend.
Elbow Xray
IMPRESSION:
No acute fracture or dislocation. Severe posterior elbow soft tissue swelling may reflect olecranon bursitis. Joint spaces are maintained. No radiographic evidence for osteomyelitis. Questionable joint effusion. Scattered soft tissue phleboliths.
Prescriptions:
New
cephalexin 500 mg capsule
500 mg PO Q6H 14 Days Qty: 56 0RF
Continued
atorvastatin 80 mg Tablet
80 mg PO HS
lamotrigine [Lamictal] 200 mg Tablet
200 mg PO DAILY
levothyroxine 50 mcg Tablet
50 mcg PO DAILY
montelukast 10 mg Tablet
10 mg PO DAILY
hydroxychloroquine [Plaquenil] 200 mg Tablet
200 mg PO BID
ezetimibe [Zetia] 10 mg Tablet
10 mg PO HS
cyclosporine [Restasis] 0.05 % Dropperette
1 drp BOTH EYES BID
valsartan-hydrochlorothiazide [Diovan HCT] 320-12.5 mg Tablet
1 tab PO HS
aspirin 81 mg Capsule
81 mg PO HS
alprazolam 0.5 mg Tablet
0.5 mg PO HSPRN PRN (Reason: insomnia)
Patient Comments:
03/29/24: last filled 03/28/24 for 30 tablets over 30 days
albuterol sulfate 90 mcg/actuation Hfa Aerosol Inhaler
2 puff INHALATION R Q6HPRN PRN (Reason: sob)
cholecalciferol (vitamin D3) [Vitamin D3] 50 mcg (2,000 unit) Capsule
50 mcg PO DAILY
lamotrigine [Lamictal] 200 mg Tablet
100 mg PO HS
ferrous sulfate 325 mg (65 mg iron) Tablet
325 mg PO HS
clotrimazole-betamethasone 1-0.05 % Cream
1 applic TOPICAL BID
ibuprofen [Advil] 200 mg Tablet
400 mg PO Q6HPRN PRN (Reason: mild pain)
ranolazine 500 mg Tablet Extended Release 12 Hr
500 mg PO BID
guaifenesin 1,200 mg Tablet Extended Release 12hr
1,200 mg PO DAILY
Arnuity Ellipta 100 mcg/actuation Blister With Device
1 inh INHALATION R DAILY
esomeprazole magnesium 40 mg Capsule,Delayed Release(Dr/Ec)
40 mg PO DAILY
Discontinued
cephalexin 500 mg Capsule
500 mg PO BID
Patient Comments:
03/29/24: filled 03/28/24, to take for 10 days
Discharge Orders:
Discharge Patient (As Directed); Ordered 03/31/24
Ordered By: Franky Phillip
Discharge Date and Time
Print Language: SRI LANKAN
--- NOTE | 2024-03-31 11:21 | W.PN.HOSP.TC ---
Today's Communication/Plan
-
dc home
Assessment / Plan
Assessment / Plan
NAD, resting comfortably in bed
Scleral anicteric
Moist mucous membranes
No JVD
CTA bilateral
Normal S1-S2 no murmurs
Soft nontender nondistended bowel sounds active
No peripheral pitting edema
Moves extremities spontaneously
Right elbow bursa inflamed. No effusion of the elbow joint. Able to move joint well without pain. There is some warmth however to what she has described as this was keeping her warm yesterday has improved significantly.
AAOx3
Septic bursitis versus olecranon bursitis.
-Fortunately there was already improvement in swelling erythema and range of motion therefore orthopedic surgery recommended against arthrocentesis as there would be a higher likelihood of introducing infection rather than culture obtaining.
-Continue make this and Ancef.
- -I did curbside infectious diseases stationary engineer apprentice via [employer] on the day of discharge reviewed case with them they recommended Keflex every 6 on discharge if worsening will need to return for arthrocentesis.
-Transition to Keflex on discharge
Lymphoma marginal/follicular lung�current remission
-Takes Rituxan last dose was January follows with [facility]
Seizure disorder
-Continue Lamictal 200 mg a.m., 100 mg at bedtime
Atherosclerosis
-No history of cardiac cath follows with [facility] cardiology
-Continue Ranexa, statin, aspirin 81 mg daily
Hypothyroidism s/p parathyroidectomy
-Continue levothyroxine 50 mcg p.o. daily
Lupus
-Continue Plaquenil 200 mg twice daily
HTN�benign
BP 158/93
-Continue valsartan/HCTZ
HLD
-Continue Zetia 10 mg at bedtime, atorvastatin 80 mg at bedtime
Insomnia
Continue alprazolam 0.5 mg at bedtime as needed
Sjogren's syndrome
-Continue Restasis
DVT prophylaxis
Subcu Lovenox
Anticipated Discharge: Today
Subjective/Interval History
-
Date of Service: March 31, 2024
Seen and examined. No new complaints. No acute overnight events.
States that she is feeling better. Erythema swelling continue to improve. No nausea or vomiting.
Agreeable for discharge however wants evening dose of antibiotics.
Tells me that she would stay longer for IV antibiotics if she did not have to go to the [facility].
Verbalized understanding about return precautions if noted worsening swelling erythema pain drainage, systemic symptoms such as fever. Then she should return to the hospital immediately. Tells me that she 45 minutes away. I informed if this
occurs then we will definitely need a culture sample from fluid.
Objective Data
-
Labs:
Laboratory Results
03/31/24
05:27
WBC 4.9
Hgb 13.4
Hct 39.0
Plt Count 252
Sodium 138
Potassium 4.5
Chloride 101
Carbon Dioxide 26
BUN 16
Creatinine 0.9
Glucose 104 H
Calcium 9.8
Total Bilirubin 0.5
AST 26
ALT 26
Alkaline Phosphatase 111
Vital Signs:
Vital Signs
Temp Pulse Resp BP Pulse Ox
98.6 F 74 14 130/72 96
03/31/24 11:18 03/31/24 11:18 03/31/24 11:18 03/31/24 11:18 03/31/24 11:18
I&O
03/30/24 03/31/24 04/01/24
06:59 06:59 06:59
Intake Total 200 / 200 2180 / 2180
Balance 200 / 200 2180 / 2180
--- NOTE | 2024-03-31 11:58 | CM ---
Patient seen at bedside.
Discharge today. States will be leaving later.
PLAN: Discharge to home today.
will transport.
[2024-03-31 15:52] VITALS: BP 138/78
== END 2024-03-31 19:30 | disposition home or self-care (01) | DRG 558 ==
LOC: 2 NORTH 21:27
PROVIDERS: Clinical Nurse Specialist Family Health; ADMITTING PHYSICIAN Hospitalist; ATTENDING PHYSICIAN Hospitalist; CONSULT PHYSICIAN Orthopaedic Surgery; EMERGENCY PHYSICIAN Emergency Medicine; FAMILY PHYSICIAN Physician Assistant Medical
DX: M70.21 Olecranon bursitis, right elbow (principal); C85.90 Non-Hodgkin lymphoma, unspecified, unspecified site; D84.821 Immunodeficiency due to drugs; M32.9 Systemic lupus erythematosus, unspecified; M35.00 Sjogren syndrome, unspecified; E03.9 Hypothyroidism, unspecified; G40.909 Epilepsy, unspecified, not intractable, without status epilepticus; I10 Essential (primary) hypertension; E78.00 Pure hypercholesterolemia, unspecified; G47.00 Insomnia, unspecified; G47.30 Sleep apnea, unspecified; I87.8 Other specified disorders of veins; M25.421 Effusion, right elbow; M25.521 Pain in right elbow; M79.601 Pain in right arm; R19.7 Diarrhea, unspecified; R51.9 Headache, unspecified; Z79.82 Long term (current) use of aspirin; Z79.890 Hormone replacement therapy; Z79.899 Other long term (current) drug therapy; Z88.1 Allergy status to other antibiotic agents; Z88.2 Allergy status to sulfonamides; Z88.8 Allergy status to other drugs, medicaments and biological substances; Z82.49 Family history of ischemic heart disease and other diseases of the circulatory system
CPT/HCPCS: 73080; 80053; 83605; 85025; 96374; 99285

== ENCOUNTER → 2024-07-04 07:44 | Outpatient (REF) | payer BC, SELFPAY | LOC: WDC 07:44 | PROVIDERS: ATTENDING PHYSICIAN Nurse Practitioner Adult Health; FAMILY PHYSICIAN Physician Assistant Medical | DX: Z12.31 Encounter for screening mammogram for malignant neoplasm of breast (principal) | CPT/HCPCS: 77063; 77067 ==

== ENCOUNTER → 2024-12-08 07:39 | Outpatient (REF) | payer BC, SELFPAY | LOC: RAD 07:39 | PROVIDERS: ATTENDING PHYSICIAN Internal Medicine Hematology & Oncology; FAMILY PHYSICIAN Physician Assistant Medical | DX: L03.90 Cellulitis, unspecified (principal); D80.1 Nonfamilial hypogammaglobulinemia | CPT/HCPCS: 71260; Q9967 ==

== ENCOUNTER → 2025-04-07 14:36 | Outpatient (REF) | payer BC, SELFPAY | LOC: RAD 14:36 | PROVIDERS: ATTENDING PHYSICIAN Urology; FAMILY PHYSICIAN Physician Assistant Medical | DX: N39.0 Urinary tract infection, site not specified (principal) | CPT/HCPCS: 76770 ==

== ENCOUNTER → 2025-05-31 06:48 | Outpatient (REF) | payer BC, SELFPAY | LOC: RAD 06:48 | PROVIDERS: ATTENDING PHYSICIAN Podiatrist Foot & Ankle Surgery; FAMILY PHYSICIAN Physician Assistant Medical; OTHER PHYSICIAN Internal Medicine Cardiovascular Disease; REFERRING PHYSICIAN Nurse Practitioner Adult Health | DX: I73.89 Other specified peripheral vascular diseases (principal); I73.00 Raynaud's syndrome without gangrene; C83.398 Diffuse large B-cell lymphoma of other extranodal and solid organ sites; L03.90 Cellulitis, unspecified; D80.1 Nonfamilial hypogammaglobulinemia | CPT/HCPCS: 93306; 93356; 93922; 93925 ==

== ENCOUNTER → 2025-07-07 08:02 | Outpatient (REF) | payer BC, SELFPAY | LOC: WDC 08:02 | PROVIDERS: ATTENDING PHYSICIAN Nurse Practitioner Adult Health; FAMILY PHYSICIAN Physician Assistant Medical | DX: Z12.31 Encounter for screening mammogram for malignant neoplasm of breast (principal) | CPT/HCPCS: 77063; 77067 ==